=== PATIENT | male | born 1945 | race Caucasian/White ===

== ENCOUNTER → 2021-09-02 | Outpatient (CLI) | payer MEDICARE, OTHER ==
[~2021-09-02] MED LIST: CELECOXIB100 MG PO; CYCLOBENZAPRINE10 MG PO; VITAMIN D21250 MCG PO
[2021-09-02 13:29] LABS: HEMOGLOBIN 14.1 gm/dl (14.0-17.5); RED BLOOD COUNT 4.5 M/UL (4.20-5.50); WHITE BLOOD COUNT 5.9 K/UL (4.5-11.0)
== END ==
LOC: OPSV2 12:26 → EDSTATUS 12:30 → OPSV2 12:30
PROVIDERS: Orthopaedic Surgery
DX: Z01.818 Encounter for other preprocedural examination (principal); M17.12 Unilateral primary osteoarthritis, left knee
CPT/HCPCS: 36415; 71046; 80048; 85025; 93005

== ENCOUNTER 2021-09-24 16:19 | Inpatient (IN) | payer MEDICARE, OTHER ==
[~2021-09-24] VITALS: Ht 177.8 cm; Wt 89.4 kg
[~2021-09-24 16:19] MED LIST changes: -ELIQUIS 5 MG TAB5 MG PO
[2021-09-24 17:13] LABS: HEMOGLOBIN 10.1 gm/dl (14.0-17.5); RED BLOOD COUNT 3.21 M/UL (4.20-5.50); WHITE BLOOD COUNT 8.2 K/UL (4.5-11.0)
[2021-09-24 17:31] LABS: BUN/CREATININE RATIO 18 (0-10)
[2021-09-25 01:54] LABS: HEMOGLOBIN 9.5 gm/dl (14.0-17.5); RED BLOOD COUNT 3.1 M/UL (4.20-5.50); WHITE BLOOD COUNT 7.2 K/UL (4.5-11.0)
[2021-09-25 02:43] LABS: BUN/CREATININE RATIO 19 (0-10)
[2021-09-26 02:18] LABS: HEMOGLOBIN 9.6 gm/dl (14.0-17.5); RED BLOOD COUNT 3.1 M/UL (4.20-5.50); WHITE BLOOD COUNT 8.4 K/UL (4.5-11.0)
[2021-09-26 02:34] LABS: BUN/CREATININE RATIO 17 (0-10)
[2021-09-27] MEDS ORDERED: ELIQUIS 5 MG TAB5 MG PO (08:10)
== END 2021-09-27 10:12 | disposition home health service (06) | DRG 559 ==
LOC: ER1 16:19 → PROG CARE 19:09 → CDU 19:09 → PROG CARE 22:13
PROVIDERS: Emergency Medicine; Internal Medicine; ADMIT Internal Medicine
DX: T84.81XA Embolism due to internal orthopedic prosthetic devices, implants and grafts, initial encounter (principal); I26.99 Other pulmonary embolism without acute cor pulmonale; I82.402 Acute embolism and thrombosis of unspecified deep veins of left lower extremity; Z20.822 Contact with and (suspected) exposure to COVID-19; M19.90 Unspecified osteoarthritis, unspecified site; Y83.8 Other surgical procedures as the cause of abnormal reaction of the patient, or of later complication, without mention of misadventure at the time of the procedure; G89.29 Other chronic pain; Z96.652 Presence of left artificial knee joint; D64.9 Anemia, unspecified; M79.7 Fibromyalgia; Z98.890 Other specified postprocedural states; Z79.01 Long term (current) use of anticoagulants; Z79.82 Long term (current) use of aspirin; Z84.89 Family history of other specified conditions
CPT/HCPCS: 36415; 80048; 80053; 82550; 82553; 83540; 83550; 83735; 83880; 84484; 85025; 85027; 85610; 85730; 93005; 93971; 97110-GP-CQ; 97162; 97166; 97530; 97535; 99285; J1644; Q9967; U0002

== ENCOUNTER → 2021-09-24 | Outpatient (CLI) | payer MEDICARE, OTHER ==
[~2021-09-24] MED LIST changes: +ASPIRIN EC81 MG PO; +ELIQUIS 5 MG TAB5 MG PO; +ROXICODONE5 MG PO; +VITAMIN B-121000 MC3 PO
== END ==
LOC: KOH-I 14:56
DX: Z53.8 Procedure and treatment not carried out for other reasons (principal)
CPT/HCPCS: 93971

== ENCOUNTER → 2022-03-11 | Outpatient (CLI) | payer MEDICARE, OTHER ==
[~2022-03-11] MED LIST changes: +ELIQUIS 5 MG TAB5 MG PO
== END ==
LOC: MRI 12:26
DX: R22.42 Localized swelling, mass and lump, left lower limb (principal)
CPT/HCPCS: 36415; 73720; 82565; 84520; A9577